=== PATIENT | female | born 2000 | race Caucasian/White ===

== ENCOUNTER → 2022-12-13 | Outpatient (CLI) | payer BC ==
[2022-12-13 19:03] LABS: HEMATOCRIT 37.5 % (36.0-47.0); HEMOGLOBIN 13.1 g/dl (12.0-15.5); MEAN CORPUSCULAR HEMOGLOBIN 31.8 pg (27.0-33.0); MEAN CORPUSCULAR HGB CONC 34.9 g/dl (32.0-36.5); PLATELET COUNT, AUTOMATED 289 10^3/uL (150-450); RED BLOOD COUNT 4.12 10^6/uL (4.00-5.40); WHITE BLOOD COUNT 9.7 10^3/uL (4.0-10.0)
[2022-12-13 19:37] LABS: HIV 1&2 SCREEN NEGATIVE (NEGATIVE)
[2022-12-13 19:45] LABS: HEPATITIS C VIRUS ABY INDEX 0.1 INDEX (<0.8)
[2022-12-13 20:45] LABS: GC DNA AMPLIFICATION NEGATIVE (NEGATIVE)
== END ==
LOC: M PLALAB 15:22
PROVIDERS: ATTEND Advanced Practice Midwife
DX: Z34.01 Encounter for supervision of normal first pregnancy, first trimester (principal); Z3A.00 Weeks of gestation of pregnancy not specified

== ENCOUNTER → 2023-01-17 | Outpatient (CLI) | payer BC | LOC: M PLALAB 13:06 | PROVIDERS: ATTEND Obstetrics & Gynecology | DX: Z34.82 Encounter for supervision of other normal pregnancy, second trimester (principal); Z3A.00 Weeks of gestation of pregnancy not specified ==

== ENCOUNTER → 2023-02-11 | Outpatient (CLI) | payer BC | LOC: M WHC 12:56 | PROVIDERS: ATTEND Obstetrics & Gynecology | DX: Z34.82 Encounter for supervision of other normal pregnancy, second trimester (principal) ==

== ENCOUNTER → 2023-05-08 | Outpatient (CLI) | payer BC | LOC: M LAB 08:12 | PROVIDERS: ATTEND Advanced Practice Midwife | DX: O99.810 Abnormal glucose complicating pregnancy (principal) ==

== ENCOUNTER → 2023-06-07 | Outpatient (REF) | payer BC | LOC: M PLALAB 07:25 | PROVIDERS: ATTEND Obstetrics & Gynecology | DX: Z34.83 Encounter for supervision of other normal pregnancy, third trimester (principal) ==

== ENCOUNTER 2023-07-03 01:23 | Inpatient (IN) | payer BC ==
[2023-07-03] VITALS (52 sets, daily range): BP systolic 79–195; BP diastolic 43–137; O2SAT 95–98
[~2023-07-03] VITALS: Ht 167.6 cm; Wt 93.9 kg
[2023-07-03] MEDS ORDERED: HOME MED LIST COMPLETE! XX SCH (01:50)
[2023-07-03] MEDS ORDERED: LACTATED RINGER'S 1000 ML IV STA (02:08)
[2023-07-03] MEDS ORDERED: METHYLERGONOVINE MALEATE 0.2MG/ML 1ML VIAL IM PRN (02:10)
[2023-07-03] MEDS ORDERED: CARBOPROST TROMETHAMINE 250 MCG/ML AMP IM PRN (02:10)
[2023-07-03] MEDS ORDERED: TRANEXAMIC ACID INJection 1,000 MG in NS 100 ML IV PRN (02:10)
[2023-07-03] MEDS ORDERED: OXYTOCIN DRIP 30 UNITS in IV 1 EA IV PRN ×4 (02:10)
[2023-07-03 02:35] LABS: HEMATOCRIT 35.7 % (36.0-47.0); HEMOGLOBIN 11.2 g/dl (12.0-15.5); MEAN CORPUSCULAR HEMOGLOBIN 26.8 pg (27.0-33.0); MEAN CORPUSCULAR HGB CONC 31.4 g/dl (32.0-36.5); MEAN CORPUSCULAR VOLUME 85.4 fl (80.0-96.0); PLATELET COUNT, AUTOMATED 299 10^3/uL (150-450); RED BLOOD COUNT 4.18 10^6/uL (4.00-5.40); WHITE BLOOD COUNT 9.7 10^3/uL (4.0-10.0)
[2023-07-03] MEDS ORDERED: diphenhydrAMINE 50MG/ML VIAL IV PRN (02:55)
[2023-07-03] MEDS ORDERED: NALOXONE INJ 0.4MG/1ML VIAL IV PRN (02:55)
[2023-07-03] MEDS ORDERED: LR 500 ML IV PRN (02:55)
[2023-07-03] MEDS ORDERED: EPIDURAL/PCA KEYS XX PRN (02:55)
[2023-07-03] MEDS ORDERED: FENTANYL/ROPIVACAINE/NACL BAG 100 ML EPIDURAL SCH (02:55)
[2023-07-03] MEDS ORDERED: ONDANSETRON 4MG 2ML VIAL IV PRN (02:55)
[2023-07-03] MEDS: ePHEDrine SULFATE 25 MG/5 ML(5MG/ML) SYRINGE IVP PRN ×3 (03:56→04:02)
[2023-07-03] MEDS ORDERED: OXYTOCIN DRIP 30 UNITS in IV 1 EA IV SCH (05:25)
[2023-07-03] MEDS: PRENATAL VITAMINS CHEWABLE TABLET PO SCH (09:00)
[2023-07-03] MEDS ORDERED: ACETAMINOPHEN 500 MG TAB PO PRN (11:25)
[2023-07-03] MEDS ORDERED: RHOGAM 300MCG (1500IU) INJ IM SCH (11:25)
[2023-07-03] MEDS ORDERED: ACETAMINOPHEN TAB 650MG DOSE (2X325MG) PO PRN (11:25)
[2023-07-03] MEDS ORDERED: METHYLERGONOVINE MALEATE 0.2 MG TAB PO PRN (11:25)
[2023-07-03] MEDS ORDERED: DOCUSATE SODIUM 100MG CAPSULE PO PRN (11:25)
[2023-07-03] MEDS ORDERED: DIBUCAINE 1% OINTMENT 30GM TOP PRN (11:25)
[2023-07-03] MEDS ORDERED: IBUPROFEN 800 MG TAB PO PRN (11:25)
[2023-07-03] MEDS ORDERED: IBUPROFEN 600MG TAB PO PRN (11:25)
[2023-07-04 06:00] VITALS: BP 111/66; O2SAT 97
[2023-07-04] MEDS: PRENATAL VITAMINS CHEWABLE TABLET PO SCH (09:15)
[2023-07-04] MEDS ORDERED: ACET-683 PO (10:09)
[2023-07-04] MEDS ORDERED: IBUP80TA PO (10:09)
[2023-07-05] MEDS ORDERED: MEASLES,MUMPS,RUBELLA VACCINE INJ (MMR-II) SC.IMMUN ONE (09:00)
== END 2023-07-04 15:00 | disposition home or self-care (01) | DRG 560 ==
LOC: M LDO 01:23 → M LDI 02:04 → M OBS 14:04
PROVIDERS: ADMIT Obstetrics & Gynecology; ATTEND Obstetrics & Gynecology
PROC: 10E0XZZ Delivery of Products of Conception, External Approach (ICD-10-PCS; principal; 2023-07-03)
DX: O48.0 Post-term pregnancy (principal); Z37.0 Single live birth; Z3A.40 40 weeks gestation of pregnancy; O69.1XX0 Labor and delivery complicated by cord around neck, with compression, not applicable or unspecified

== ENCOUNTER → 2023-12-10 | Outpatient (REF) | payer MEDICARE ==
[~2023-12-10] MED LIST: ACET-683 PO; IBUP80TA PO
== END ==
LOC: M SFHCWAGY 09:57
PROVIDERS: ATTEND Advanced Practice Midwife
DX: Z12.4 Encounter for screening for malignant neoplasm of cervix (principal)

== ENCOUNTER → 2024-06-02 | Outpatient (REF) | payer MEDICARE | LOC: M LAB REF 20:53 | PROVIDERS: ATTEND Physician Assistant Medical | DX: B34.9 Viral infection, unspecified (principal) ==